=== PATIENT | male | born 1950 | race Caucasian/White ===

== ENCOUNTER 2017-05-01 09:48 | Day surgery (SDC) | payer OTHER ==
[~2017-05-01 09:48] MED LIST: ACETAMINOPHEN 325 MG TAB PO; MIDAZOLAM INJ 2 MG/2 ML VIAL (J2250) As Ordered; PHENYLEPHRINE HCL 10 % OPHTH. SOL 5ML OS; PROPARACAINE 0.5% OPHTH SOL 15ML OS; fentaNYL 100 MCG/2 ML INJECTION (J3010) As Ordered
[2017-05-01] MEDS ORDERED: LIDOCAINE 3.5 % 1ML OPHTH TOPICAL GEL As Ordered (10:14)
[2017-05-01] MEDS ORDERED: TRIMETHOBENZAMIDE 300 MG CAP PO (10:15)
[2017-05-01] MEDS: OFLOXACIN 0.3 % (OCUFLOX) OPTH SOL 5ML OS (10:30)
[2017-05-01] MEDS: PHENYLEPHRINE 2.5% OPHTH SOL 2ML OS (10:30)
[2017-05-01] MEDS: TROPICAMIDE 1% OPHTH SOLN 2ML OS (10:30)
[2017-05-01] MEDS: LIDOCAINE 3.5 % 1ML OPHTH TOPICAL GEL OU (10:30)
[2017-05-01] MEDS: CYCLOPENTOLATE 2% OPHTH SOLN 2ML BTL OS (10:30)
[2017-05-01] MEDS: POVIDONE-IODINE 5% OPHTH PREP SOL 30ML As Ordered (11:34)
[2017-05-01] MEDS: HEALON DUET (HEALON 10MG/ML 0.55ML & HEALON ENDOCOAT 30MG/ML 0.85ML) As Ordered (11:37)
[2017-05-01] MEDS: LIDOCAINE 1% SDV 5 ML VIAL As Ordered (11:38)
[2017-05-01] MEDS: BALANCED SALT IRRIGATION SOLUTION 500ML BAG (FOR OR EYE MACHINE) As Ordered (11:38)
[2017-05-01] MEDS: ACETYLCHOLINE OPHTH SOLN 1% 2ML (MIOCHOL-E) As Ordered (11:38)
[2017-05-01] MEDS: CEFUROXIME 1MG/0.1ML INTRACAMERAL INJ As Ordered (11:38)
[2017-05-01] MEDS: KETOROLAC 0.5% OPHTH SOLN OS (12:16)
[2017-05-01] MEDS: AcetaZOLAMIDE 500 MG ER CAP PO (12:16)
== END 2017-05-01 12:35 | disposition home or self-care (01) ==
LOC: M SDC 09:48
DX: H25.12 Age-related nuclear cataract, left eye (principal); I25.10 Atherosclerotic heart disease of native coronary artery without angina pectoris; I10 Essential (primary) hypertension; E78.00 Pure hypercholesterolemia, unspecified; M10.9 Gout, unspecified; K21.9 Gastro-esophageal reflux disease without esophagitis; R29.898 Other symptoms and signs involving the musculoskeletal system; J44.9 Chronic obstructive pulmonary disease, unspecified; R06.83 Snoring; G47.33 Obstructive sleep apnea (adult) (pediatric); Z79.899 Other long term (current) drug therapy; Z95.0 Presence of cardiac pacemaker; Z79.01 Long term (current) use of anticoagulants; Z87.81 Personal history of (healed) traumatic fracture
CPT/HCPCS: 66984

== ENCOUNTER 2017-05-22 07:51 | Day surgery (SDC) | payer OTHER ==
[2017-05-22] MEDS: LIDOCAINE 1% SDV 5 ML VIAL As Ordered (07:03)
[~2017-05-22 07:51] MED LIST changes: -MIDAZOLAM INJ 2 MG/2 ML VIAL (J2250) As Ordered; +PHENYLEPHRINE HCL 10 % OPHTH. SOL 5ML OD; -PHENYLEPHRINE HCL 10 % OPHTH. SOL 5ML OS; +PROPARACAINE 0.5% OPHTH SOL 15ML OD; -PROPARACAINE 0.5% OPHTH SOL 15ML OS; -fentaNYL 100 MCG/2 ML INJECTION (J3010) As Ordered
[2017-05-22] MEDS ORDERED: LIDOCAINE 1% MDV 20ML VIAL SQ (08:15)
[2017-05-22] MEDS ORDERED: LR 1,000 ML IV (08:15)
[2017-05-22] MEDS: LIDOCAINE 3.5 % 1ML OPHTH TOPICAL GEL OU (08:38)
[2017-05-22] MEDS: OFLOXACIN 0.3 % (OCUFLOX) OPTH SOL 5ML OD (08:39)
[2017-05-22] MEDS: TROPICAMIDE 1% OPHTH SOLN 2ML OD (08:39)
[2017-05-22] MEDS: PHENYLEPHRINE 2.5% OPHTH SOL 2ML OD (08:39)
[2017-05-22] MEDS: CYCLOPENTOLATE 2% OPHTH SOLN 2ML BTL OD (08:40)
[2017-05-22] MEDS ORDERED: MIDAZOLAM INJ 2 MG/2 ML VIAL (J2250) As Ordered (09:27)
[2017-05-22] MEDS ORDERED: fentaNYL 100 MCG/2 ML INJECTION (J3010) As Ordered (09:27)
[2017-05-22] MEDS: POVIDONE-IODINE 5% OPHTH PREP SOL 30ML As Ordered (09:32)
[2017-05-22] MEDS: HEALON DUET (HEALON 10MG/ML 0.55ML & HEALON ENDOCOAT 30MG/ML 0.85ML) As Ordered (09:33)
[2017-05-22] MEDS: BALANCED SALT IRRIGATION SOLUTION 500ML BAG (FOR OR EYE MACHINE) As Ordered (09:33)
[2017-05-22] MEDS: CEFUROXIME 1MG/0.1ML INTRACAMERAL INJ As Ordered (09:33)
[2017-05-22] MEDS: ACETYLCHOLINE OPHTH SOLN 1% 2ML (MIOCHOL-E) As Ordered (09:33)
[2017-05-22] MEDS: KETOROLAC 0.5% OPHTH SOLN OD (10:11)
[2017-05-22] MEDS: AcetaZOLAMIDE 500 MG ER CAP PO (10:11)
[2017-05-22] MEDS ORDERED: TRIMETHOBENZAMIDE 300 MG CAP PO (10:15)
== END 2017-05-22 10:25 | disposition home or self-care (01) ==
LOC: M SDC 07:51
DX: H25.11 Age-related nuclear cataract, right eye (principal); Z95.0 Presence of cardiac pacemaker; I25.10 Atherosclerotic heart disease of native coronary artery without angina pectoris; J44.9 Chronic obstructive pulmonary disease, unspecified; E78.00 Pure hypercholesterolemia, unspecified; G47.9 Sleep disorder, unspecified; Z79.899 Other long term (current) drug therapy; Z79.51 Long term (current) use of inhaled steroids
CPT/HCPCS: 66984

== ENCOUNTER → 2020-09-21 | Outpatient (CLI) | payer OTHER ==
[~2020-09-21] MED LIST changes: -ACETAMINOPHEN 325 MG TAB PO; +ALLO100T; +BUDE10.7; +BUME2TAB3; +CART240C3; +ENTR1TAB; +FURO20TA2; +GLIM2TAB29; +MAGN1TAB26 PO; +METO50TA7; +PANT40TA29; -PHENYLEPHRINE HCL 10 % OPHTH. SOL 5ML OD; +PRAV40TA2; -PROPARACAINE 0.5% OPHTH SOL 15ML OD; +SYMB16INH; +TIOT18INH INH; +XARE20TA
== END ==
LOC: M LABSMTC 12:07
PROVIDERS: ATTEND Anesthesiology
DX: Z01.818 Encounter for other preprocedural examination (principal); Z11.52 Encounter for screening for COVID-19

== ENCOUNTER 2020-09-26 12:50 | Day surgery (SDC) | payer MEDICARE ==
[~2020-09-26] VITALS: Ht 177.8 cm; Wt 145.1 kg
[~2020-09-26 12:50] MED LIST changes: +LIDOCAINE 1% MDV 20ML VIAL As Ordered ONE; +LIDOCAINE 1% MDV 20ML VIAL SQ PRN; +LR 1,000 ML IV ONE; +ceFAZolin SOD 1 GM in D5W MINI-BAG PLUS 50 ML IV ONE; +ceFAZolin SOD 2 GM in IV 1 EA IV ONE
[2020-09-26] MEDS ORDERED: LIDOCAINE 2% 100MG/5ML SDV (FOR ANES.) As Ordered ONE (14:23)
[2020-09-26] MEDS ORDERED: propofoL 200 MG/20 ML VIAL As Ordered ONE ×3 (14:23→15:32)
[2020-09-26] MEDS ORDERED: ONDANSETRON 4MG/2ML VIAL As Ordered ONE (14:24)
[2020-09-26] MEDS ORDERED: fentaNYL 100 MCG/2 ML INJECTION (J3010) As Ordered ONE (14:24)
[2020-09-26] MEDS ORDERED: dexameTHASONE 4 MG/ML 1ML VIAL (J1100 PER 1MG) As Ordered ONE (14:24)
[2020-09-26] MEDS ORDERED: BACITRACIN OINTMENT 30GM TUBE As Ordered ONE (16:05)
[2020-09-26 16:43] VITALS: BP 129/53
--- NOTE | 2020-09-26 18:58 | RO ---
OPERATIVE NOTE DATE OF OPERATION: 09/26/2020 PREOPERATIVE DIAGNOSIS: Pacemaker battery depletion. POSTOPERATIVE DIAGNOSIS: Pacemaker battery depletion. FINDINGS: Pacemaker battery depletion. PROCEDURE PERFORMED: Explantation of old and implantation of new dual- chamber pacemaker pulse generator. SURGEON: Tereso Singer M.D. INSOLE BEVELER: None. ANESTHESIA: Lidocaine 1% local/monitored anesthetic care. SPECIMENS: Old [employer] dual-chamber pacemaker pulse generator. ESTIMATED BLOOD LOSS: 2 mL BLOOD PRODUCTS REPLACED: None. DRAINS: None. COMPLICATIONS: None. PROCEDURE DESCRIPTION: Patient was prepped and draped over the left pectoral region. 3M Ioban film was applied. An incision was made through the existing pacemaker scar approximately 2-1/2 to 3 inches in length using a PEAK PlasmaBlade. The PlasmaBlade was used to enter the fatty layer and through the anterior capsule overlying the pacemaker pulse generator. I observed that along the lateral aspect of the pulse generator that was present that one of the pacemaker leads was overlying that portion of the pulse generator. I used the [employer]AK PlasmaBlade to dissect a small amount of the lead away from the pacemaker pulse generator and from the incision to make the procedure safer. I noticed that the pacemaker pulse generator was not sutured down. The pacemaker pulse generator was removed from the pocket and the atrial and ventricular leads were removed after loosening the set screws. The existing atrial and ventricular leads were plugged into their respective ports into the new pacemaker pulse generator header. Each one was secured by tightening the leads with the hex screwdriver to tighten the set screws. A pull test was applied to each lead to demonstrate it was secure. The new pacemaker pulse generator was then placed into the pacemaker pocket. The deep layer was closed using individual sutures consisting of 2-0 Vicryl. Two additional 3-0 Vicryl sutures were used to help approximate the more superficial layer. The skin was then closed using anjum. The patient tolerated the procedure well without any immediate complications. The existing pacemaker pulse generator that was removed was a [employer] mode 2210 with serial number [id number] which was implanted 07/05/2011. The new pacemaker pulse generator implanted was a [employer] MRI with model number [id number] with serial number [id number]. The existing right atrial lead was a [employer] model 1688TC, 50 cm in length originally implanted 07/05/2011 and had serial number [id number]. The patient appeared to be atrial fibrillation. The existing right ventricular lead was a [employer] model 1688TC, 58 cm with serial number [id number] originally implanted 07/05/2011. The paced base testing in the operating room through the new pacemaker pulse generator showed capture threshold for the right ventricle of 1.8 volts and 0.5 volts consistent bipolar configuration with R wave amplitude of 9.1 millivolt and an impedance of 430 ohms. Hiram Maria M.D.
== END 2020-09-26 17:00 | disposition home or self-care (01) ==
LOC: M SDC 12:50
PROVIDERS: ATTEND Internal Medicine Cardiovascular Disease
DX: Z45.010 Encounter for checking and testing of cardiac pacemaker pulse generator [battery] (principal); I48.21 Permanent atrial fibrillation; I25.10 Atherosclerotic heart disease of native coronary artery without angina pectoris; I49.3 Ventricular premature depolarization; I11.0 Hypertensive heart disease with heart failure; E78.00 Pure hypercholesterolemia, unspecified; I50.32 Chronic diastolic (congestive) heart failure; I44.2 Atrioventricular block, complete; E11.9 Type 2 diabetes mellitus without complications; J44.9 Chronic obstructive pulmonary disease, unspecified; Z79.899 Other long term (current) drug therapy; Z79.51 Long term (current) use of inhaled steroids; Z79.01 Long term (current) use of anticoagulants; Z79.84 Long term (current) use of oral hypoglycemic drugs
CPT/HCPCS: 33228; C1785; J0690; J1100; J2405; J3010